=== PATIENT | female | born 1990 | race African-American/Black ===

== ENCOUNTER 2019-02-02 13:10 | Emergency (ER) | payer SELFPAY ==
[~2019-02-02] VITALS: Ht 170.2 cm; Wt 73.0 kg
[2019-02-02 15:15] VITALS: BP 130/80
== END 2019-02-02 18:26 | disposition home or self-care (01) ==
LOC: ER 16:39
DX: S60.862A Insect bite (nonvenomous) of left wrist, initial encounter (principal); S60.861A Insect bite (nonvenomous) of right wrist, initial encounter; W57.XXXA Bitten or stung by nonvenomous insect and other nonvenomous arthropods, initial encounter; Y93.89 Activity, other specified; Y92.89 Other specified places as the place of occurrence of the external cause; Y99.8 Other external cause status
CPT/HCPCS: 99283